=== PATIENT | male | born 1955 | race Caucasian/White ===

== ENCOUNTER → 2025-04-10 | Day surgery (SDC) | payer MEDICARE ==
[~2025-04-10] MED LIST: Sodium Bicarbonate 2.5 MEQ/5 ML SDV ONE
[2025-04-10 12:58] LABS: #Basophils 0.10 10x3/uL (0.0-0.2); #Eosinophils 0.21 10x3/uL (0.0-0.5); #Monocytes 0.57 10x3/uL (0.0-1.1); #Neutrophils 3.48 10x3/uL (1.5-8.4); %Basophils 1.6 % (0.0-2.0); %Eosinophils 3.3 % (0.0-6.0); %Lymphocytes 32.0 % (18.0-47.0); %Monocytes 8.9 % (0.0-10.0); %Neutrophils 53.9 % (40.0-75.0); Hematocrit 37.4 % (38.8-50.0); Hemoglobin 12.1 g/dL (13.5-17.5); Mean Corpuscular Hemoglobin 31.1 pg (27.0-33.0); Mean Corpuscular Volume 96.1 fL (81.2-95.1); Platelet Count 209 10x3/uL (150-450); Red Blood Cell (RBC) Count 3.89 10x6/uL (4.32-5.72); White Blood Cell (WBC) Count 6.44 10x3/uL (3.5-10.5)
[2025-04-10 13:05] LABS: INR-International Normal Ratio 1.1; Prothrombin Time 12.4 sec (9.5-12.1)
[2025-04-10 14:28] VITALS: BP 138/75; TEMP 97.8
[2025-04-10 18:43] LABS: BF Segmented Neutrophils 7 %; Cell Count Non Hematic 41 %
== END ==
LOC: CSHULT 11:51
PROVIDERS: ATTEND Physician Assistant Medical
PROC: 0W9G3ZZ Drainage of Peritoneal Cavity, Percutaneous Approach (ICD-10-PCS; principal; 2025-04-10)
DX: K70.31 Alcoholic cirrhosis of liver with ascites (principal); K59.09 Other constipation; K76.82 Hepatic encephalopathy; K80.20 Calculus of gallbladder without cholecystitis without obstruction; R10.11 Right upper quadrant pain; Z86.0100 Personal history of colon polyps, unspecified
CPT/HCPCS: 49083; 84155; 85025; 85610; 87070; 87205; 89051; P9047

== ENCOUNTER → 2025-05-14 | Day surgery (SDC) | payer MEDICARE ==
[~2025-05-14] MED LIST changes: +FLU (Fluad Triv) 25-26 (65UP)PF 45 MCG/0.5 ML Syringe IM ONE; +PNEUMOC 20-VAL CONJ-DIP CRM/PF 0.5 ML SYRINGE IM ONE
[2025-05-14 09:25] VITALS: BP 149/89; TEMP 97.2
[2025-05-14 10:09] LABS: INR-International Normal Ratio 1.1; Prothrombin Time 12.4 sec (9.5-12.1)
== END ==
LOC: CSHULT 08:04
PROVIDERS: ATTEND Physician Assistant Medical
PROC: 0W9G3ZZ Drainage of Peritoneal Cavity, Percutaneous Approach (ICD-10-PCS; principal; 2025-05-14)
DX: K70.31 Alcoholic cirrhosis of liver with ascites (principal); K76.7 Hepatorenal syndrome; K76.82 Hepatic encephalopathy; I10 Essential (primary) hypertension; Z79.899 Other long term (current) drug therapy
CPT/HCPCS: 49083; 85610; P9047

== ENCOUNTER 2025-05-27 12:27 | Day surgery (SDC) | payer MEDICARE ==
[2025-05-27 13:11] LABS: #Basophils 0.08 10x3/uL (0.0-0.2); #Eosinophils 0.18 10x3/uL (0.0-0.5); #Monocytes 0.40 10x3/uL (0.0-1.1); #Neutrophils 2.54 10x3/uL (1.5-8.4); %Basophils 1.7 % (0.0-2.0); %Eosinophils 3.7 % (0.0-6.0); %Lymphocytes 33.3 % (18.0-47.0); %Monocytes 8.3 % (0.0-10.0); %Neutrophils 52.6 % (40.0-75.0); Hematocrit 37.2 % (38.8-50.0); Hemoglobin 12.2 g/dL (13.5-17.5); Mean Corpuscular Hemoglobin 31.1 pg (27.0-33.0); Mean Corpuscular Volume 94.9 fL (81.2-95.1); Red Blood Cell (RBC) Count 3.92 10x6/uL (4.32-5.72); White Blood Cell (WBC) Count 4.83 10x3/uL (3.5-10.5)
[2025-05-27 13:21] LABS: Anion Gap 16 mmol/L (10-20); BUN (Urea Nitrogen) 14 mg/dL (8.4-25.7); Calc. Creatinine Clearance 0 mL/min (70-130); Calcium 8.3 mg/dL (7.8-10.44); Carbon Dioxide 20 mmol/L (23-31); Chloride 100 mmol/L (98-107); Glucose 127 mg/dL (83-110); Sodium 132 mmol/L (136-145)
[2025-05-27 13:28] LABS: Potassium 4.3 mmol/L (3.5-5.1)
[2025-05-27] MEDS ORDERED: Sodium Bicarbonate 2.5 MEQ/5 ML SDV ONE (13:28)
[2025-05-27 13:39] LABS: Platelet Count 47 10x3/uL (150-450)
== END 2025-05-27 14:50 | disposition home or self-care (01) ==
LOC: CSHULT 12:27
PROVIDERS: ATTEND Physician Assistant Medical
PROC: 0W9G3ZZ Drainage of Peritoneal Cavity, Percutaneous Approach (ICD-10-PCS; principal; 2025-05-27)
DX: K70.31 Alcoholic cirrhosis of liver with ascites (principal); K76.7 Hepatorenal syndrome; K76.82 Hepatic encephalopathy; K80.20 Calculus of gallbladder without cholecystitis without obstruction; Z86.0100 Personal history of colon polyps, unspecified
CPT/HCPCS: 49083; 80048; 85025; P9047

== ENCOUNTER → 2025-06-10 | Day surgery (SDC) | payer MEDICARE ==
[2025-06-10] MEDS: Albumin 25% 25 GM (100 mL) BOT IVPB SCH (14:00)
[2025-06-10 14:35] VITALS: BP 139/77
== END ==
LOC: CSHULT 12:26
PROVIDERS: ATTEND Physician Assistant Medical
PROC: 0W9G3ZZ Drainage of Peritoneal Cavity, Percutaneous Approach (ICD-10-PCS; principal; 2025-06-10)
DX: K70.31 Alcoholic cirrhosis of liver with ascites (principal); K59.00 Constipation, unspecified; K76.82 Hepatic encephalopathy; K80.20 Calculus of gallbladder without cholecystitis without obstruction; K76.7 Hepatorenal syndrome; R79.89 Other specified abnormal findings of blood chemistry; I10 Essential (primary) hypertension; F10.20 Alcohol dependence, uncomplicated; Y90.9 Presence of alcohol in blood, level not specified; Z86.0100 Personal history of colon polyps, unspecified; Z79.899 Other long term (current) drug therapy
CPT/HCPCS: 49083; P9047

== ENCOUNTER 2025-07-08 11:51 | Day surgery (SDC) | payer MEDICARE ==
[2025-07-08] MEDS ORDERED: Sodium Bicarbonate 2.5 MEQ/5 ML SDV ONE (12:05)
== END 2025-07-08 14:15 | disposition home or self-care (01) ==
LOC: CSHULT 11:51
PROVIDERS: ATTEND Physician Assistant Medical
PROC: 0W9G30Z Drainage of Peritoneal Cavity with Drainage Device, Percutaneous Approach (ICD-10-PCS; principal; 2025-07-08)
DX: K70.31 Alcoholic cirrhosis of liver with ascites (principal); K76.82 Hepatic encephalopathy; K76.7 Hepatorenal syndrome; K59.09 Other constipation; K80.20 Calculus of gallbladder without cholecystitis without obstruction; Z86.0100 Personal history of colon polyps, unspecified
CPT/HCPCS: 49083; P9047

== ENCOUNTER 2025-07-21 11:58 | Day surgery (SDC) | payer MEDICARE ==
[2025-07-21 14:39] LABS: Anion Gap 13 mmol/L (10-20); BUN (Urea Nitrogen) 13 mg/dL (8.4-25.7); Calc. Creatinine Clearance 0 mL/min (70-130); Calcium 8.9 mg/dL (7.8-10.44); Carbon Dioxide 23 mmol/L (23-31); Chloride 100 mmol/L (98-107); Glucose 95 mg/dL (83-110); Potassium 3.4 mmol/L (3.5-5.1); Sodium 133 mmol/L (136-145)
== END 2025-07-21 15:20 | disposition home or self-care (01) ==
LOC: CSHULT 11:58
PROVIDERS: ATTEND Physician Assistant Medical
PROC: 0W9G3ZZ Drainage of Peritoneal Cavity, Percutaneous Approach (ICD-10-PCS; principal; 2025-07-21)
DX: K70.31 Alcoholic cirrhosis of liver with ascites (principal); K76.82 Hepatic encephalopathy; K76.7 Hepatorenal syndrome; K59.09 Other constipation; K80.20 Calculus of gallbladder without cholecystitis without obstruction; I12.9 Hypertensive chronic kidney disease with stage 1 through stage 4 chronic kidney disease, or unspecified chronic kidney disease; N18.4 Chronic kidney disease, stage 4 (severe); D63.1 Anemia in chronic kidney disease; F10.20 Alcohol dependence, uncomplicated; Y90.9 Presence of alcohol in blood, level not specified; Z86.0100 Personal history of colon polyps, unspecified; Z79.899 Other long term (current) drug therapy
CPT/HCPCS: 49083; 80048; P9047